=== PATIENT | male | born 1965 ===

== ENCOUNTER 2018-05-05 06:44 | Inpatient (IN) | payer OTHER ==
[~2018-05-05] VITALS: Ht 165.1 cm; Wt 49.0 kg
[2018-05-05] MEDS ORDERED: ASACOL HD800 MG PO (07:20)
== END 2018-05-09 18:25 | disposition home or self-care (01) | DRG 387 ==
LOC: ER 06:44 → MEDI 18:40
PROC: BW25Y0Z Computerized Tomography (CT Scan) of Chest, Abdomen and Pelvis using Other Contrast, Unenhanced and Enhanced (ICD-10-PCS; principal; 2018-05-05)
DX: K50.118 Crohn's disease of large intestine with other complication (principal)